=== PATIENT | female | born 1955 | race African-American/Black ===

== ENCOUNTER → 2021-02-14 | Outpatient (CLI) | payer MEDICARE, OTHER ==
[~2021-02-14] MED LIST: ADULT LOW DOSE81 MG PO; AMITIZA 24 MCG24 MC1 PO; ATROVENT HFA14 GM INH; AVAPRO 150 MG150 M1 PO; BACLOFEN 10MG T10 M1 PO; BACTRIM DS TAB1 EACH PO; BENZONATATE200 MG PO; CALCIUM 500 +1 EAC5 PO; CARAFATE 1 GM TA1 G1 PO; CIPRO500 MG PO; CLONAZEPAM 1 MG1 M1 PO; CLONAZEPAM PO; COLACE100 MG PO; COMPOUND CREAM; CYMBALTA30 MG PO; CYMBALTA60 MG PO; DIOVAN320 MG PO; ENDOCET 5-3251 EACH PO; FISH OIL 1,001000 MG PO; FLAXSEED OIL1000 MG PO; FLONASE 0.05%50 MCG NASAL; GAVISCON TABLE1 EACH PO; GLYCOLAX POWDER17 GM PO; HYCET 7.5 MG-3473 ML PO; HYDROCHLOROTHIA25 M2 PO; HYDROCODON-ACE1 EAC5 PO; HYDROCODONE-HOMA5 ML PO; IBUPROFEN 800800 M1 PO; IRBESARTAN300 MG PO; KEFLEX500 M1 PO; LINZESS290 MCG PO; LIPITOR80 MG PO; LOSARTAN POTASS50 MG PO; MEDROLDOSEPACK PO; METFORMIN HCL500 MG PO; MOBIC7.5 MG PO; NEURONTIN 300300 M1 PO; NEXIUM 40 MG CA40 M1 PO; NEXIUM PO; NEXIUM20 M1 PO; NITROGLYCERIN0.4 MG SUBLING; NORTRIPTYLINE H10 M1 PO; PERCOCET 5-3251 EACH PO; PERCOCET PO; PROAIR HFA8.5 GM IH; PROAIR HFA8.5 GM INH; PROBIOTIC1 EAC1 PO; PROMETHAZINE/C118 ML PO; PROTONIX40 M1 PO; REGLAN 10 MG TA10 MG PO; ROBAXIN 750 MG750 M1 PO; ROBITUSSIN100 MG/53 PO; SAVELLA50 MG PO; SINGULAIR 10 MG10 M1 PO; TESSALON PERLE100 MG PO; TOPROL XL25 MG PO; UNICOMPLEX M TA1 TA1 PO; VITAMIN D2000 UNIT PO; XIFAXAN550 M1 PO; ZOFRAN ODT4 MG DISSOLVE; ZOFRAN ODT4 MG PO; ZOFRAN ODT4 MG SUBLING; [UNRECOGNIZED DRUG - OTHER]; [UNRECOGNIZED DRUG - OTHER]; [UNRECOGNIZED DRUG - OTHER] PO
== END ==
LOC: M.RAD 12:54
PROVIDERS: ATTEND Hospitalist
DX: Z12.31 Encounter for screening mammogram for malignant neoplasm of breast (principal)